=== PATIENT | female | born 1995 | race Hispanic/Latino ===

== ENCOUNTER 2019-09-21 10:22 | Emergency (ER) | payer BC, SELFPAY ==
[2019-09-21 11:02] LABS: BASO % 0.2 % (0.0-1.0); HEMATOCRIT 35.5 % (36.0-47.0); MEAN CORPUSCULAR HEMOGLOBIN 26.9 pg (27.0-33.0); MEAN CORPUSCULAR VOLUME 86.8 fl (80.0-96.0); MONO # 0.3 10^3/uL (0.0-0.8); MONO % 1.8 % (0.0-5.0); NEUTROPHILS # 12.8 10^3/uL (1.5-8.5); NEUTROPHILS % 90.7 % (36.0-66.0); PLATELET COUNT, AUTOMATED 300 10^3/uL (150-450); RED BLOOD COUNT 4.09 10^6/uL (4.00-5.40); WHITE BLOOD COUNT 14.1 10^3/uL (4.0-10.0)
[2019-09-21 11:25] LABS: ALT/SGPT 17 U/L (12-78); BILIRUBIN,DIRECT 0.2 MG/DL (0.0-0.2); BILIRUBIN,TOTAL 0.7 MG/DL (0.2-1.0); BLOOD UREA NITROGEN 14 MG/DL (7-18); CALCIUM LEVEL 9.1 MG/DL (8.5-10.1); CARBON DIOXIDE LEVEL 25 MEQ/L (21-32); CHLORIDE LEVEL 104 MEQ/L (98-107); CREATININE FOR GFR 0.82 MG/DL (0.55-1.30); GLOMERULAR FILTRATION RATE > 60.0 (>60); GLUCOSE, FASTING 163 MG/DL (70-100); LIPASE 62 U/L (73-393); POTASSIUM SERUM 4.3 MEQ/L (3.5-5.1); SODIUM LEVEL 140 MEQ/L (136-145); TOTAL PROTEIN 7.9 GM/DL (6.4-8.2)
[2019-09-21] MEDS ORDERED: NS 1,000 ML IV ONE (11:30)
[2019-09-21] MEDS ORDERED: ONDANSETRON 4MG/2ML VIAL (J2405) IV ONE (11:30)
[2019-09-21] MEDS ORDERED: ISOVUE-370 76% 100ML VIAL (Q9967) As Ordered ONE (11:35)
[2019-09-21] MEDS ORDERED: KETOROLAC 30 MG/ML VIAL (J1885) IV ONE (12:00)
--- NOTE | 2019-09-21 12:13 | REP ---
Abdomen series: Three views. History: Severe abdomen pain. No comparison study. Findings: Upright chest radiograph shows no evidence of infiltrate or free subdiaphragmatic air. The patient is rotated to the right for the chest radiographic exposure. Heart is not enlarged. Pulmonary vasculature is not increased. Supine and erect views of the abdomen demonstrate a normal bowel gas pattern. Air is seen in a normal caliber appendix incidentally. Flank stripes and psoas margins are intact. No mass, organomegaly, or pathologic calcification is seen. Impression: Normal appendix is seen filled with air. Bowel gas pattern is normal. No active disease in the chest. Electronically Signed by Clay Nieto MD 09/21/2019 12:51 P
[2019-09-21] MEDS ORDERED: HALOPERIDOL 5 MG/ML VIAL (J1630) IV ONE (12:45)
[2019-09-21 12:48] LABS: ETHYL ALCOHOL (ETHANOL) < 0.003 % (0.000-0.010)
[2019-09-21 12:58] LABS: AMPHETAMINES LEVEL URINE NEGATIVE (NEGATIVE); BARBITURATES URINE NEGATIVE (NEGATIVE); BENZODIAZEPINES URINE NEGATIVE (NEGATIVE); CANNABINOIDS URINE POSITIVE (NEGATIVE); COCAINE METABOLITE URINE NEGATIVE (NEGATIVE); METHADONE URINE NEGATIVE (NEGATIVE); OPIATES URINE NEGATIVE (NEGATIVE); PHENCYCLIDINE URINE NEGATIVE (NEGATIVE)
[2019-09-21] MEDS ORDERED: TAMSULOSIN 0.4 MG CAP PO ONE (13:00)
--- NOTE | 2019-09-21 13:06 | REP ---
CT abdomen and pelvis with IV but without oral contrast: History: Severe abdomen pain. Comparison radiographs are from this date. CT contrast dose: 100 mL of intravenous Isovue [address] findings: Digital preliminary scout sniper radiograph is unremarkable. The lung bases are clear on axial CT images. The liver is normal in size and homogeneous in texture. No focal hepatic lesion is seen. No abnormalities noted in the gallbladder. The pancreas is unremarkable. There is an accessory splenule adjacent to the pancreatic tail. No splenic abnormality is seen otherwise. No adrenal lesion is seen. The kidneys enhance symmetrically and are morphologically intact. No retroperitoneal mass or adenopathy is seen. Normal ovaries are noted. No uterine abnormality is seen. Urinary bladder is unremarkable. A normal appendix is seen retrocecal and air filled in the right mid abdomen. There is a 2 mm calculus at the posteromedial bladder wall which could conceivably be a distal ureteral calculus at the UV junction although it appears somewhat medial in position. No other urinary tract calculus is seen. Small and large bowel loops are unremarkable. Bone window settings show no bony destructive lesion. No abdominal wall defect is observed. Impression: 2 mm calcification near the ureterovesical junction, possible distal ureteral stone. No hydronephrosis however. Otherwise normal CT abdomen and pelvis with IV contrast. Normal appendix. Electronically Signed by Clay Nieto MD 09/21/2019 01:44 P
[2019-09-21] MEDS ORDERED: FLOM0.4C39 PO (15:05)
[2019-09-21 15:14] VITALS: BP 141/68
== END 2019-09-21 15:39 | disposition home or self-care (01) ==
LOC: EDBD 10:22 → M ED 10:22
DX: N20.0 Calculus of kidney (principal); F12.188 Cannabis abuse with other cannabis-induced disorder; R11.15 Cyclical vomiting syndrome unrelated to migraine; F17.218 Nicotine dependence, cigarettes, with other nicotine-induced disorders
CPT/HCPCS: 74021; 74177; 80048; 80076; 80307; 81001; 83690; 84702; 85025; 96374; 96375; 99284; G0480; J1630; J1885; J2405; Q9967